=== PATIENT | female | born 1975 | race Caucasian/White ===

== ENCOUNTER 2017-05-29 10:00 | Emergency (ER) | payer BC ==
[~2017-05-29] VITALS: Ht 165.1 cm; Wt 78.6 kg
[~2017-05-29 10:00] MED LIST: ANTIVERT25 MG PO; ATIVAN2 MG PO; CITALOPRAM HBR20 MG PO; FLEXERIL10 MG PO; NEXIUM40 MG PO; NORCO 5/3251 TABLET PO; PEPCID20 MG PO; PERCOCET 5/31 TABLET PO; TRAZODONE HCL100 MG PO; VALIUM5 MG PO; ZANTAC300 MG PO; ZOFRAN ODT4 MG PO; ZOFRAN4 MG PO; celeXA PO
[2017-05-29 10:31] LABS: HEMATOCRIT 40.1 % (36.0-46.0); HEMOGLOBIN 13.8 G/DL (11.9-15.5); MCH 31.8 PG (29.0-34.0); MCHC 34.4 G/DL (30.0-36.0); MCV 92.4 FL (83-99); PLATELET COUNT 298 K/uL (156-360); RBC DIS.WIDTH-CV 12.1 % (11.8-14.6); RBC DIS.WIDTH-SD 41.6 % (39-53); RED BLOOD COUNT 4.34 M/uL (3.80-5.20); WHITE BLOOD COUNT 9.2 K/uL (4.1-10.2)
[2017-05-29 10:42] LABS: CHLORIDE 107 mEq/L (99-109); POTASSIUM 4.3 mEq/L (3.7-5.4); SODIUM 142 mEq/L (136-147)
[2017-05-29 10:52] LABS: TROP-I INTERPRETATION NEGATIVE; TROPONIN-I < 0.01 ng/mL (0.0-0.30)
[2017-05-29 10:55] LABS: GLUCOSE 98 mg/dL (70-99)
[2017-05-29 10:58] LABS: CREATININE 0.8 mg/dL (0.6-1.3); GFR ESTIMATE (CALCULATED) > 59 mL/min/
[2017-05-29 10:59] LABS: UREA NITROGEN (BUN) 11 mg/dL (9-23)
[2017-05-29] MEDS ORDERED: NIFEDIPINE ER30 MG PO (14:18)
[2017-05-29 15:25] VITALS: BP 118/72
== END 2017-05-29 15:34 | disposition home or self-care (01) ==
LOC: EME 10:00
DX: I20.1 Angina pectoris with documented spasm (principal); F41.9 Anxiety disorder, unspecified; Z90.49 Acquired absence of other specified parts of digestive tract
CPT/HCPCS: 71046; 80048; 83880; 84484; 85027; 93005; 99281; 99285